=== PATIENT | female | born 1985 | race Two or more races ===

== ENCOUNTER → 2016-12-31 | Outpatient (CLI) | payer OTHER | LOC: SP 07:50 | PROVIDERS: ATTEND Physician Assistant | DX: R07.9 Chest pain, unspecified (principal) | CPT/HCPCS: 93306 ==

== ENCOUNTER → 2017-01-01 | Outpatient (CLI) | payer OTHER | LOC: RAD 14:38 | PROVIDERS: ATTEND Physician Assistant | DX: R19.00 Intra-abdominal and pelvic swelling, mass and lump, unspecified site (principal) | CPT/HCPCS: 76705 ==

== ENCOUNTER → 2017-02-04 | Outpatient (CLI) | payer OTHER ==
--- NOTE | 2017-02-04 10:03 | RADIOLOGY REPORT (SQ) ---
EXAM DESCRIPTION: CT ABD/PELVIS WITH IV ORAL COMPLETED DATE/TIME: 02/04/2017 9:04 am REASON FOR STUDY: LUQ PAIN R10.12 LEFT UPPER QUADRANT PAIN COMPARISON: None. TECHNIQUE: CT scan of the abdomen and pelvis performed with intravenous and oral contrast using elayne shaista scanning technique with dynamic intravenous contrast injection. Images reviewed with lung, soft t issue, and bone windows. Reconstructed coronal and sagittal MPR images reviewed. Delayed images for e valuation of the urinary system also acquired. All images stored on PACS. All CT scanners at this facility use dose modulation, iterative reconstruction, and/or weight based d osing when appropriate to reduce radiation dose to as low as reasonably achievable (ALARA). [facility]: Dose Right [facility]: CareDose [facility]: Dose Right [facility]: Teradose 4D [facility]: [employer] CONTRAST TYPE AND DOSE: 90 mL Isovue 370- low osmolar. RENAL FUNCTION: None required. The patient is less than 50 years old. RADIATION DOSE: 14.86mGy. LIMITATIONS: None. FINDINGS: LOWER CHEST: No significant findings. No nodules or infiltrates. LIVER: Normal size. No masses or dilated ducts. SPLEEN: Normal size. No focal lesions. PANCREAS: No masses. No significant calcifications. No adjacent inflammation or peripancreatic fluid collections. Pancreatic duct not dilated. GALLBLADDER: No identified stones by CT criteria. No inflammatory changes to suggest cholecystitis. ADRENAL GLANDS: No significant masses or asymmetry. RIGHT KIDNEY AND URETER: No solid masses. No significant calcification. No hydronephrosis or hydroure ter. LEFT KIDNEY AND URETER: No solid masses. No significant calcification. No hydronephrosis or hydrouret er. AORTA AND VESSELS: No aneurysm. No dissection. Renal arteries, SMA, celiac without stenosis. RETROPERITONEUM: No retroperitoneal adenopathy, hemorrhage or masses. BOWEL AND PERITONEAL CAVITY: No obstruction. No visualized masses. No free fluid. No inflammatory ch anges or thickening of bowel wall. APPENDIX: Normal. PELVIS: No significant masses. Normal bladder. No free fluid. ABDOMINAL WALL: No masses. No hernias. BONES: No significant or acute findings. OTHER: No other significant finding. IMPRESSION: NO SIGNIFICANT OR ACUTE FINDINGS IN THE ABDOMEN OR PELVIS. TECHNICAL DOCUMENTATION: JOB ID: [id number] Quality ID # [id number]: Final reports with documentation of one or more dose reduction techniques (e.g., Au tomated exposure control, adjustment of the mA and/or kV according to patient size, use of iterative reconstruction technique) 2010 [employer]- All Rights Reserved
== END ==
LOC: RAD 08:39
PROVIDERS: ATTEND Surgery
DX: R10.12 Left upper quadrant pain (principal)
CPT/HCPCS: 74177

== ENCOUNTER 2017-11-16 19:38 | Emergency (ER) | payer OTHER ==
--- NOTE | 2017-11-16 20:38 | RADIOLOGY REPORT (SQ) ---
EXAM DESCRIPTION: HAND RIGHT 3 VIEWS COMPLETED DATE/TIME: 11/16/2017 8:16 pm REASON FOR STUDY: Pain s/p injury COMPARISON: None. EXAM PARAMETERS: NUMBER OF VIEWS: Three views. TECHNIQUE: AP, lateral and oblique radiographic images acquired of the right hand. LIMITATIONS: None. FINDINGS: MINERALIZATION: Normal. BONES: No acute fracture or dislocation. No worrisome bone lesions. JOINTS: No effusions. SOFT TISSUES: No soft tissue swelling. No foreign body. OTHER: No other significant finding. IMPRESSION: NEGATIVE STUDY OF THE RIGHT HAND. NO RADIOGRAPHIC EVIDENCE OF ACUTE INJURY. TECHNICAL DOCUMENTATION: JOB ID: [id number] [employer]- All Rights Reserved Reading location - IP/workstation name: [email or web address]
[2017-11-16 20:46] VITALS: BP 120/74
--- NOTE | 2017-11-16 20:48 | ER Document Report ---
ED General - General Chief Complaint: Finger Injury Stated Complaint: RT FINGER PAIN Time Seen by Provider: 11/16/17 20:06 Notes: 32-year-old female here with complaints of pain to her right pinky finger after she fell and landed on the pinky. She reports that it was dislocated appearing so she pulled on it and popped it back into place. Pain is worse with movement. Pain is improved with minimizing movement. She also has some swelling. She has not taken anything for pain. She denies any numbness tingling weakness. TRAVEL OUTSIDE OF THE [place] IN LAST 30 DAYS: No - Related Data Allergies/Adverse Reactions: No Known Drug Allergies Allergy (Verified 04/25/13 12:36) Past Medical History - Social History Smoking Status: Never Smoker Family History: Reviewed & Not Pertinent Patient has suicidal ideation: No Patient has homicidal ideation: No - Past Medical History Cardiac Medical History: Denies: Hx Coronary Artery Disease - elevated triglycerides, Hx Heart Attack , Hx Hypertension Pulmonary Medical History: Denies: Hx Asthma, Hx Bronchitis, Hx COPD, Hx Pneumonia Neurological Medical History: Denies: Hx Cerebrovascular Accident, Hx Seizures Renal/ Medical History: Denies: Hx Peritoneal Dialysis Musculoskeltal Medical History: Denies Hx Arthritis Past Surgical History: Denies: Hx Hysterectomy - Immunizations Hx Diphtheria, Pertussis, Tetanus Vaccination: Yes Review of Systems - Review of Systems Notes: See history of present illness for pertinent positive review of systems; otherwise all review of systems have been reviewed and are negative Physical Exam - Vital signs Vitals: Temp Pulse Resp BP Pulse Ox 99.1 F 97 20 131/79 H 97 11/16/17 19:56 11/16/17 19:56 11/16/17 19:56 11/16/17 19:56 11/16/17 19:56 - Notes Notes: PHYSICAL EXAMINATION: GENERAL: Well-appearing and in no acute distress. HEAD: Atraumatic, normocephalic. EYES: Pupils equal round and reactive to light, extraocular movements intact, sclera anicteric, conjunctiva are normal. ENT: nares patent, oropharynx clear without exudates. Moist mucous membranes. NECK: Normal range of motion, supple without lymphadenopathy EXTREMITIES: Normal range of motion, no pitting edema. No cyanosis. Right fifth digit with some mild swelling and ecchymosis at the proximal phalanx and MTP joint however range of motion intact but there is some mild tenderness to palpation. Neurovascular intact distally NEUROLOGICAL: Cranial nerves grossly intact. Normal sensory/motor exams. PSYCH: Normal mood, normal affect. SKIN: Warm, Dry, normal turgor, no rashes or lesions noted Course - Re-evaluation Re-evalutation: 11/16/17 20:43 MEDICAL DECISION MAKING: X-ray does not show any fracture or dislocation It may have been dislocated initially however she reports she reduced it She declines any pain medication here Will prescribe her meloxicam for pain Patient understands and agrees to the plan of care - Vital Signs Vital signs: Temp Pulse Resp BP Pulse Ox 99.1 F 97 20 131/79 H 97 11/16/17 19:56 11/16/17 19:56 11/16/17 19:56 11/16/17 19:56 11/16/17 19:56 Discharge - Discharge Clinical Impression: Finger pain, right Condition: Good Disposition: HOME, SELF-CARE Additional Instructions: The x-ray was negative. Use the prescribed medication as needed for pain. Apply ice. Keep elevated. You were seen in the emergency department at [facility]. If you were given any sedating medications, be sure not to operate heavy machinery (example - driving) and be sure you are not too sedated to walk appropriately. Please followup with your primary physician in the next few days for further management/evaluation. Please return to the emergency department for worsening of symptoms or any symptom that you deem to be concerning or life-threatening. Thank you for allowing us to be part of your care.
== END 2017-11-16 20:48 | disposition home or self-care (01) ==
LOC: ER 19:38
DX: M79.644 Pain in right finger(s) (principal); W19.XXXA Unspecified fall, initial encounter
CPT/HCPCS: 99283

== ENCOUNTER → 2019-06-08 | Outpatient (CLI) | payer OTHER ==
[2019-06-08 17:37] LABS: ABSOLUTE EOSINOPHILS # (AUTO) 0.1 10^3/uL (0.0-0.6); ABSOLUTE LYMPHOCYTES (AUTO) 2.6 10^3/uL (0.5-4.7); ABSOLUTE MONOCYTES (AUTO) 0.5 10^3/uL (0.1-1.4); ABSOLUTE NEUT (AUTO) 3.5 10^3/uL (1.7-8.2); BASOPHILS % (AUTO) 0.6 % (0-2); EOSINOPHILS % (AUTO) 1.9 % (0-6); HEMATOCRIT 39.5 % (36.0-47.0); HEMOGLOBIN 13.6 g/dL (12.0-15.5); LYMPHOCYTES % (AUTO) 37.9 % (13-45); MEAN CORPUSCULAR HEMOGLOBIN 28.8 pg (27.0-33.4); MEAN CORPUSCULAR HGB CONC 34.5 g/dL (32.0-36.0); MEAN CORPUSCULAR VOLUME 83 fl (80-97); MONOCYTES % (AUTO) 8.1 % (3-13); PLATELET COUNT 287 10^3/uL (150-450); RED BLOOD COUNT 4.74 10^6/uL (3.72-5.28); RED CELL DISTRIBUTION WIDTH 12.9 % (11.5-14.0); SEGMENTED NEUTROPHILS % (AUTO) 51.5 % (42-78); TOTAL CELLS COUNTED % (AUTO) 100 %; WHITE BLOOD COUNT 6.8 10^3/uL (4.0-10.5)
== END ==
LOC: OD 16:55
PROVIDERS: ATTEND Nurse Practitioner Family
DX: N93.9 Abnormal uterine and vaginal bleeding, unspecified (principal)
CPT/HCPCS: 36415; 84703; 85025

== ENCOUNTER → 2019-08-07 | Outpatient (CLI) | payer OTHER | LOC: OD 16:18 | PROVIDERS: ATTEND Family Medicine | DX: N91.2 Amenorrhea, unspecified (principal) | CPT/HCPCS: 36415; 84702 ==

== ENCOUNTER 2019-09-01 17:33 | Emergency (ER) | payer OTHER ==
--- NOTE | 2019-09-01 18:06 | ER Document Report ---
ED Medical Screen (RME) - General Chief Complaint: Vag Bleeding, +preg <12wks Stated Complaint: VAGINAL BLEEDING Time Seen by Provider: 09/01/19 17:59 Primary Care Provider: CORINA HULL NP [Primary Care Provider] - Follow up as needed Mode of Arrival: Ambulatory Information source: Patient Notes: 34-year-old female presents to ED for complaint of vaginal bleeding and cramping that started around 1630. She is 7 weeks 3 days . She did use IUI for her . She states she has had a positive ultrasound on Wednesday before she started bleeding she was 6 weeks to 6 days she states she is a positive blood type. Patient is alert oriented respirations regular nonlabored speaking in full sentences walks with even steady gait. I have greeted and performed a rapid initial assessment of this patient. A comprehensive ED assessment and evaluation of the patient, analysis of test results and completion of medical decision making process will be conducted by an additional ED providers. TRAVEL OUTSIDE OF THE [place] IN LAST 30 DAYS: No - Related Data Allergies/Adverse Reactions: No Known Drug Allergies Allergy (Verified 04/25/13 12:36) Past Medical History - Past Medical History Cardiac Medical History: Denies: Hx Coronary Artery Disease - elevated triglycerides, Hx Heart Attack, Hx Hypertension Pulmonary Medical History: Denies: Hx Asthma, Hx Bronchitis, Hx COPD, Hx Pneumonia Neurological Medical History: Denies: Hx Cerebrovascular Accident, Hx Seizures Renal/ Medical History: Denies: Hx Peritoneal Dialysis Musculoskeltal Medical History: Denies Hx Arthritis Past Surgical History: Denies: Hx Hysterectomy - Immunizations Hx Diphtheria, Pertussis, Tetanus Vaccination: Yes Physical Exam - Vital signs Vitals: Temp Pulse Resp BP Pulse Ox 98.2 F 102 H 18 132/77 H 99 09/01/19 17:40 09/01/19 17:40 09/01/19 17:40 09/01/19 17:40 09/01/19 17:40 Course - Vital Signs Vital signs: Temp Pulse Resp BP Pulse Ox 98.2 F 102 H 18 132/77 H 99 09/01/19 17:40 09/01/19 17:40 09/01/19 17:40 09/01/19 17:40 09/01/19 17:40 Doctor's Discharge - Discharge Referrals: DELLA,CORINA ALETA, BARREL BUILDER [Primary Care Provider] - Follow up as needed
[2019-09-01 18:50] LABS: ABSOLUTE EOSINOPHILS # (AUTO) 0.2 10^3/uL (0.0-0.6); ABSOLUTE MONOCYTES (AUTO) 0.8 10^3/uL (0.1-1.4); ABSOLUTE NEUT (AUTO) 8.5 10^3/uL (1.7-8.2); BASOPHILS % (AUTO) 0.4 % (0-2); EOSINOPHILS % (AUTO) 1.7 % (0-6); HEMATOCRIT 40.1 % (36.0-47.0); LYMPHOCYTES % (AUTO) 17.4 % (13-45); MEAN CORPUSCULAR HEMOGLOBIN 29.6 pg (27.0-33.4); MEAN CORPUSCULAR HGB CONC 34.8 g/dL (32.0-36.0); MEAN CORPUSCULAR VOLUME 85 fl (80-97); MONOCYTES % (AUTO) 6.5 % (3-13); PLATELET COUNT 269 10^3/uL (150-450); RED BLOOD COUNT 4.71 10^6/uL (3.72-5.28); RED CELL DISTRIBUTION WIDTH 12.9 % (11.5-14.0); TOTAL CELLS COUNTED % (AUTO) 100 %; WHITE BLOOD COUNT 11.5 10^3/uL (4.0-10.5)
[2019-09-01 18:54] LABS: APPEARANCE,URINE CLEAR; BILIRUBIN,URINE NEGATIVE (NEGATIVE); COLOR,URINE STRAW; GLUCOSE, URINE NEGATIVE (NEGATIVE); KETONES,URINE NEGATIVE (NEGATIVE); PROTEIN,URINE NEGATIVE (NEGATIVE); URINE SPECIFIC GRAVITY 1.004; UROBILINOGEN,URINE NEGATIVE mg/dL (<2.0)
[2019-09-01 19:15] LABS: ALBUMIN 4.4 g/dL (3.5-5.0); ALKALINE PHOSPHATASE 47 U/L (38-126); ANION GAP 12 (5-19); ASPARTATE AMINO TRANSFERASE 18 U/L (14-36); BILIRUBIN,DIRECT 0.1 mg/dL (0.0-0.4); BILIRUBIN,TOTAL 0.5 mg/dL (0.2-1.3); BLOOD UREA NITROGEN 9 mg/dL (7-20); CALCIUM 10.1 mg/dL (8.4-10.2); CARBON DIOXIDE 26 mmol/L (22-30); CHLORIDE 102 mmol/L (98-107); GLUCOSE 112 mg/dL (75-110); POTASSIUM 4.4 mmol/L (3.6-5.0)
--- NOTE | 2019-09-01 19:29 | RADIOLOGY REPORT (SQ) ---
EXAM DESCRIPTION: U/S OB TRANSVAGINAL W/O DOP COMPLETED DATE/TIME: 09/01/2019 7:10 pm REASON FOR STUDY: vaginal bleeding pelvic pain 7 weeks predg IUI COMPARISON: None. TECHNIQUE: Transvaginal static and realtime grayscale images acquired of the pelvis. Additional vitaliy cted spectral and color Doppler images recorded. All images stored on PACs. bHCG: Pending. CLINICAL DATES: 7 week 5 day. LIMITATIONS: None. FINDINGS: FETUS: Single Living intrauterine . ULTRASOUND EGA: 7 week 3 day. ULTRASOUND KRYSTIAN: 04/16/2020. EFW: Not applicable less than 20 weeks. CRL: 1.2 cm. FHR: 169 beats per minute. SURVEY: No visualized anomalies. AMNIOTIC FLUID: Adequate amount. PLACENTA: Not yet developed due to early gestation. SUBCHORIONIC BLEED: No. SIZE OF BLEED: Not applicable. UTERUS: No masses. No anomalies. CERVICAL LENGTH: 3.1 cm. Closed. RIGHT ADNEXA: Normal ovary with normal vascular flow. No adnexal free fluid. 8 mm cyst. LEFT ADNEXA: Ovary not identified due to poor acoustical window. No adnexal free fluid. No adnexal masses. FREE FLUID: None. OTHER: No other significant finding. IMPRESSION: LIVING INTRAUTERINE . EGA 7 WEEK 3 DAY. Trimester of : First trimester - 0 to 13 weeks. TECHNICAL DOCUMENTATION: JOB ID: [id number] [employer]- All Rights Reserved rev Reading location - IP/workstation name: [email or web address]
[2019-09-01 23:00] VITALS: BP 131/71
--- NOTE | 2019-09-05 09:52 | ER Document Report ---
Entered by DONG LOPEZ SCRIBE 09/01/19 [id number] Acting as scribe for:KATHRYN HENDERSON IV, MD ED GI/ - General Chief Complaint: Vaginal Bleeding Stated Complaint: VAGINAL BLEEDING Time Seen by Provider: 09/01/19 17:59 Primary Care Provider: CORINA HULL NP [NURSE PRACTITIONER] - Follow up as needed Mode of Arrival: Ambulatory Information source: Patient Notes: This 34-year-old female patient presents to the emergency department today with complaints of vaginal bleeding. Patient is approximately 7 weeks with her last normal menstrual period being on 07/09/19. Patient states that she is followed by a fertility specialist and this was induced using intrauterine insemination. Patient states that she notice spotting after intercourse about a week ago and she called her fertility specialist who told her this was normal, but to refrain from intercourse which she has done. Patient states that bleeding has since subsided but today she "passed a clot" which scared her. TRAVEL OUTSIDE OF THE [place] IN LAST 30 DAYS: No - Related Data Allergies/Adverse Reactions: No Known Drug Allergies Allergy (Verified 04/25/13 12:36) Home Medications: PCN Past Medical History - General Information source: Patient Last Menstrual Period: 07/09/19 - Social History Smoking Status: Never Smoker Cigarette use (# per day): No Chew tobacco use (# tins/day): No Frequency of alcohol use: None Drug Abuse: None Lives with: Family Family History: Reviewed & Not Pertinent Patient has suicidal ideation: No Patient has homicidal ideation: No - Immunizations Hx Diphtheria, Pertussis, Tetanus Vaccination: Yes Review of Systems - Review of Systems Constitutional: No symptoms reported EENT: No symptoms reported Cardiovascular: No symptoms reported Respiratory: No symptoms reported Gastrointestinal: denies: Abdominal pain Genitourinary: denies: Burning Female Genitourinary: See HPI, , Vaginal bleeding. denies: Vaginal discharge Musculoskeletal: No symptoms reported Skin: No symptoms reported Hematologic/Lymphatic: No symptoms reported Neurological/Psychological: No symptoms reported -: Yes All other systems reviewed and negative Physical Exam - Vital signs Vitals: Temp Pulse Resp BP Pulse Ox 98.2 F 102 H 18 132/77 H 99 09/01/19 17:40 09/01/19 17:40 09/01/19 17:40 09/01/19 17:40 09/01/19 17:40 - Notes Notes: Physical Exam: General: Alert, appears well. HEENT: Normocephalic. Atraumatic. PERRL. Extraocular movements intact. Oropharynx clear. No posterior oropharynx erythema or exudate. Neck: Supple. Non-tender. Respiratory: No respiratory distress. Clear and equal breath sounds bilaterally. Cardiovascular: Regular rate and rhythm. Abdominal: Normal Inspection. Non-tender. No distension. Normal Bowel Sounds. Back: No gross abnormalities. Extremities: Moves all four extremities. Upper extremities: Normal inspection. Normal ROM. Lower extremities: Normal inspection. No edema. Normal ROM. Neurological: Normal cognition. AAOx4. Normal speech. Psychological: Normal affect. Normal Mood. Skin: Warm. Dry. Normal color. Course - Vital Signs Vital signs: Temp Pulse Resp BP Pulse Ox 98.6 F 91 18 131/71 H 95 09/01/19 22:57 09/01/19 22:57 09/01/19 22:57 09/01/19 22:57 09/01/19 22:57 - Laboratory Result Diagrams: 09/01/19 18:23 09/01/19 18:23 Laboratory results interpreted by me: 09/01/19 09/01/19 09/01/19 18:23 18:23 18:26 WBC 11.5 H Absolute Neuts (auto) 8.5 H Glucose 112 H Beta HCG, Quant 04386.00 H Urine Blood MODERATE H Discharge - Discharge Clinical Impression: Vaginal bleeding during , Intrauterine Condition: Good Disposition: HOME, SELF-CARE Additional Instructions: Return to the Emergency Department without delay if any worse. You are . care is best started as early in as possible. If you're unsure about continuing this , you should discuss this with your physician or with lightning rod installer at [facility]. You should take only medications approved by your physician. Acetaminophen can safely be taken for minor pains. As a rule, medication for chronic conditions such as asthma or seizures can safely be continued. You should discuss with the physician every medicine you take. Any regular exercise program can be continued. Talk to your physician, however, before engaging in competitive or demanding sports. Alcohol, smoking, and "street drugs" are dangerous to your baby. Cocaine is especially dangerous. Don't use any illicit drugs! HOME CARE INSTRUCTIONS & INFORMATION: Thank you for choosing us for your medical needs. We hope you're satisfied with the care you received. After you leave, you must properly care for your problem and, at the same time, observe it s progress. Any condition can change. Some illnesses can change rapidly over hours or days. If your condition worsens, return to the Emergency Department or see your physician promptly. ABOUT YOUR X-RAYS AND EKG'S: If you had an EKG or X-rays taken, they have been read by the Emergency Physician. The X-rays and EKG's will also be read by a Radiologist or Practical Nurse within 24 hours. If discrepancies are noted, you will be notified by telephone. Please be certain the ED has a correct telephone number & address where you can be reached. Also, realize that some fractures or abnormalities do not show up on initial X-rays. If your symptoms continue, see your physician. ABOUT YOUR LABORATORY TEST: If you had laboratory tests, the results have been reviewed by the Emergency Physician. Some test results (for example cultures) may not be available for several days. You will be contacted if any test result shows you need additional treatment. Please be certain the ED has a correct telephone number and address where you can be reached. ABOUT YOUR MEDICATIONS: You will receive instructions on how to take your medicine on the prescription label you receive. Additional information may be provided by the Pharmacy. If you have questions afterwards, call the ED for clarification or further instructions. Some prescribed medications may cause drowsiness. Do not perform tasks such as driving a car or operating machinery without consulting your Pharmacist. If you feel you need a refill of pain medication, your condition will need re-evaluation. Please do not call for a refill of any medication. ABOUT YOUR SIGNATURE: Signature of this document acknowledges to followin. Understanding that you received emergency treatment and that you may be released before al medical problems are known or treated. Please be certain the ED has a correct phone number & address where you can be reached. 2. Acknowledgement that you will arrange for follow-up care as recommended. 3. Authorization for the Emergency Physician to provide information to your follow-up Physician in order to maximize your care. AT ANY TIME, IF YOUR SYMPTOMS CHANGE SIGNIFICANTLY OR WORSEN OR YOU DEVELOP NEW SYMPTOMS, RETURN TO THE EMERGENCY DEPARTMENT IMMEDIATELY FOR RE-EVALUATION. OUR GOAL IS TO PROVIDE EXCELLENT MEDICAL CARE! WE HOPE THAT WE HAVE MET YOUR EXPECTATIONS DURING YOUR EMERGENCY DEPARTMENT VISIT AND THAT YOU FEEL YOU HAVE RECEIVED EXCELLENT CARE! Referrals: CORINA HULL, EMBEDDED FIRMWARE ENGINEER [NURSE PRACTITIONER] - Follow up as needed I personally performed the services described in the documentation, reviewed and edited the documentation which was dictated to the scribe in my presence, and it accurately records my words and actions.
== END 2019-09-01 22:57 | disposition home or self-care (01) ==
LOC: ER 17:33
DX: O20.9 Hemorrhage in early pregnancy, unspecified (principal); O09.811 Supervision of pregnancy resulting from assisted reproductive technology, first trimester; Z3A.01 Less than 8 weeks gestation of pregnancy; Z79.2 Long term (current) use of antibiotics
CPT/HCPCS: 36415; 76817; 80053; 81001; 84702; 85025; 99284

== ENCOUNTER 2020-02-26 12:41 | Outpatient (CLI) | payer OTHER ==
[2020-02-26 13:24] LABS: APPEARANCE,URINE CLEAR; BILIRUBIN,URINE NEGATIVE (NEGATIVE); COLOR,URINE STRAW; GLUCOSE, URINE NEGATIVE (NEGATIVE); KETONES,URINE NEGATIVE (NEGATIVE); LEUKOCYTE ESTERASE,URINE NEGATIVE (NEGATIVE); NITRITE,URINE NEGATIVE (NEGATIVE); PROTEIN,URINE NEGATIVE (NEGATIVE); URINE SPECIFIC GRAVITY 1.004; UROBILINOGEN,URINE NEGATIVE mg/dL (<2.0)
[2020-02-26 13:36] LABS: URINE AMPHETAMINES SCREEN NEGATIVE; URINE BARBITURATES SCREEN NEGATIVE; URINE BENZODIAZEPINES SCREEN NEGATIVE; URINE COCAINE SCREEN NEGATIVE; URINE MARIJUANA (THC) SCREEN NEGATIVE; URINE METHADONE SCREEN NEGATIVE; URINE PHENCYCLIDINE SCREEN NEGATIVE
[2020-02-26 13:42] LABS: UR PRO/CREAT RATIO RESULT 0.5 mg/mg (0.0-0.2); URINE CREATININE 32.4 mg/dL (16-327); URINE PROTEIN 16.7 mg/dL (<12)
--- NOTE | 2020-02-26 13:43 | Non Stress Test Report ---
Non Stress Test Datetime Report Generated by CPN: 02/26/2020 13:43 DEMOGRAPHIC Test Number: 1 EGA NST: 32.6 MONITORING Monitor Explained: Monitor Explained; Test Explained; Patient Verbalized Understanding Time on Monitor: 02/26/2020 12:53 Time off Monitor: 02/26/2020 13:38 NST Duration: 45 NST INTERVENTIONS NST Interventions: PO Hydration Physician Notified NST: K. Davis CNM on unit, reviewed fht BABY A: [id number] BABY A Movement : Present Contraction Frequency : none FHR Baseline : 150 Accelerations : 15X15 Decelerations : None Variability : Moderate 6-25bpm NST Review: Meets Criteria for Reactive NST NST Review and Verified By : TMartin,RN NST Results: Reactive NST REPORT Report Trigger: Send Report
[2020-02-26 14:02] LABS: HEMOGLOBIN 12.4 g/dL (12.0-15.5); MEAN CORPUSCULAR HEMOGLOBIN 28.2 pg (27.0-33.4); MEAN CORPUSCULAR HGB CONC 34.5 g/dL (32.0-36.0); MEAN CORPUSCULAR VOLUME 82 fl (80-97); PLATELET COUNT 240 10^3/uL (150-450); RED BLOOD COUNT 4.41 10^6/uL (3.72-5.28); RED CELL DISTRIBUTION WIDTH 14.3 % (11.5-14.0)
[2020-02-26 14:23] LABS: ALBUMIN 3.2 g/dL (3.5-5.0); ALKALINE PHOSPHATASE 73 U/L (38-126); ANION GAP 5 (5-19); ASPARTATE AMINO TRANSFERASE 18 U/L (14-36); BILIRUBIN,TOTAL 0.3 mg/dL (0.2-1.3); BLOOD UREA NITROGEN 5 mg/dL (7-20); CALCIUM 9.5 mg/dL (8.4-10.2); CARBON DIOXIDE 24 mmol/L (22-30); CHLORIDE 107 mmol/L (98-107); GLUCOSE 74 mg/dL (75-110); POTASSIUM 4.2 mmol/L (3.6-5.0)
== END 2020-02-26 15:01 | disposition home or self-care (01) ==
LOC: LC 12:41
PROVIDERS: ATTEND Obstetrics & Gynecology
DX: O14.93 Unspecified pre-eclampsia, third trimester (principal); Z3A.32 32 weeks gestation of pregnancy
CPT/HCPCS: 36415; 80053; 80307; 81001; 82570; 83615; 84156; 84550; 85027

== ENCOUNTER 2020-03-04 14:44 | Outpatient (CLI) | payer OTHER ==
[2020-03-04 15:37] LABS: APPEARANCE,URINE CLOUDY; BILIRUBIN,URINE NEGATIVE (NEGATIVE); COLOR,URINE YELLOW; GLUCOSE, URINE NEGATIVE (NEGATIVE); KETONES,URINE NEGATIVE (NEGATIVE); LEUKOCYTE ESTERASE,URINE TRACE (NEGATIVE); NITRITE,URINE NEGATIVE (NEGATIVE); PROTEIN,URINE NEGATIVE (NEGATIVE); UROBILINOGEN,URINE NEGATIVE mg/dL (<2.0)
[2020-03-04 15:55] LABS: URINE AMPHETAMINES SCREEN NEGATIVE; URINE BARBITURATES SCREEN NEGATIVE; URINE BENZODIAZEPINES SCREEN NEGATIVE; URINE COCAINE SCREEN NEGATIVE; URINE MARIJUANA (THC) SCREEN NEGATIVE; URINE METHADONE SCREEN NEGATIVE; URINE PHENCYCLIDINE SCREEN NEGATIVE
[2020-03-04 15:57] LABS: ABSOLUTE EOSINOPHILS # (AUTO) 0.1 10^3/uL (0.0-0.6); ABSOLUTE LYMPHOCYTES (AUTO) 1.7 10^3/uL (0.5-4.7); ABSOLUTE MONOCYTES (AUTO) 0.5 10^3/uL (0.1-1.4); ABSOLUTE NEUT (AUTO) 5.5 10^3/uL (1.7-8.2); BASOPHILS % (AUTO) 0.4 % (0-2); EOSINOPHILS % (AUTO) 0.8 % (0-6); LYMPHOCYTES % (AUTO) 21.8 % (13-45); MEAN CORPUSCULAR HEMOGLOBIN 27.5 pg (27.0-33.4); MEAN CORPUSCULAR HGB CONC 33.5 g/dL (32.0-36.0); MEAN CORPUSCULAR VOLUME 82 fl (80-97); MONOCYTES % (AUTO) 6.1 % (3-13); PLATELET COUNT 239 10^3/uL (150-450); RED BLOOD COUNT 4.38 10^6/uL (3.72-5.28); RED CELL DISTRIBUTION WIDTH 14.2 % (11.5-14.0); SEGMENTED NEUTROPHILS % (AUTO) 70.9 % (42-78); TOTAL CELLS COUNTED % (AUTO) 100 %; WHITE BLOOD COUNT 7.7 10^3/uL (4.0-10.5)
[2020-03-04 16:12] LABS: ALKALINE PHOSPHATASE 75 U/L (38-126); ASPARTATE AMINO TRANSFERASE 16 U/L (14-36); BILIRUBIN,TOTAL 0.3 mg/dL (0.2-1.3); BLOOD UREA NITROGEN 6 mg/dL (7-20); CALCIUM 9.1 mg/dL (8.4-10.2); GLUCOSE 119 mg/dL (75-110); POTASSIUM 4.3 mmol/L (3.6-5.0); TOTAL PROTEIN 5.9 g/dL (6.3-8.2); URIC ACID 4.5 mg/dL (2.5-7.0)
[2020-03-04 16:17] LABS: CARBON DIOXIDE 22 mmol/L (22-30); CHLORIDE 109 mmol/L (98-107)
[2020-03-04 16:23] LABS: ANION GAP 4 (5-19)
--- NOTE | 2020-03-04 16:50 | Non Stress Test Report ---
Non Stress Test Datetime Report Generated by CPN: 03/04/2020 16:50 DEMOGRAPHIC EGA NST: 33.6 INDICATION Indication for Study (NST) Other: 33 .6 HTN evaluation VITAL SIGNS Temperature - NST: 98.4 Pulse - NST: 95 RESP - NST: 18 NBPSYS NST: 133 NBPDIA NST: 90 MONITORING Monitor Explained: Monitor Explained; Test Explained; Patient Verbalized Understanding Time on Monitor: 03/04/2020 15:01 Time off Monitor: 03/04/2020 16:10 NST Duration: 69 NST INTERVENTIONS NST Interventions: PO Hydration Physician Notified NST: Cortés BABY A: [id number] BABY A Movement : Present Contraction Frequency : None FHR Baseline : 140 Accelerations : 15X15 Decelerations : None Variability : Moderate 6-25bpm NST Review: Meets Criteria for Reactive NST NST Review and Verified By : NAHID Hoyos NST Results: Reactive NST REPORT Report Trigger: Send Report
[2020-03-04 18:04] LABS: UR PRO/CREAT RATIO RESULT 0.3 mg/mg (0.0-0.2); URINE CREATININE 77.3 mg/dL (16-327); URINE PROTEIN 24.9 mg/dL (<12)
== END 2020-03-04 16:46 | disposition home or self-care (01) ==
LOC: LC 14:44
PROVIDERS: ATTEND Obstetrics & Gynecology
DX: O16.3 Unspecified maternal hypertension, third trimester (principal); Z3A.31 31 weeks gestation of pregnancy
CPT/HCPCS: 36415; 59025; 80053; 80307; 81001; 82570; 83615; 84156; 84550; 85025

== ENCOUNTER 2020-03-14 11:47 | Outpatient (CLI) | payer OTHER ==
[2020-03-14 12:47] LABS: APPEARANCE,URINE CLEAR; BILIRUBIN,URINE NEGATIVE (NEGATIVE); COLOR,URINE STRAW; GLUCOSE, URINE NEGATIVE (NEGATIVE); KETONES,URINE NEGATIVE (NEGATIVE); LEUKOCYTE ESTERASE,URINE NEGATIVE (NEGATIVE); NITRITE,URINE NEGATIVE (NEGATIVE); PROTEIN,URINE NEGATIVE (NEGATIVE); URINE SPECIFIC GRAVITY 1.004; UROBILINOGEN,URINE NEGATIVE mg/dL (<2.0)
[2020-03-14 13:06] LABS: UR PRO/CREAT RATIO RESULT 0.6 mg/mg (0.0-0.2); URINE CREATININE 44.5 mg/dL (16-327); URINE PROTEIN 26.8 mg/dL (<12)
[2020-03-14 13:07] LABS: URINE AMPHETAMINES SCREEN NEGATIVE; URINE BARBITURATES SCREEN NEGATIVE; URINE BENZODIAZEPINES SCREEN NEGATIVE; URINE COCAINE SCREEN NEGATIVE; URINE MARIJUANA (THC) SCREEN NEGATIVE; URINE METHADONE SCREEN NEGATIVE; URINE PHENCYCLIDINE SCREEN NEGATIVE
[2020-03-14 13:29] LABS: HEMATOCRIT 40.2 % (36.0-47.0); HEMOGLOBIN 13.5 g/dL (12.0-15.5); MEAN CORPUSCULAR HEMOGLOBIN 27.4 pg (27.0-33.4); MEAN CORPUSCULAR HGB CONC 33.5 g/dL (32.0-36.0); MEAN CORPUSCULAR VOLUME 82 fl (80-97); PLATELET COUNT 231 10^3/uL (150-450); RED BLOOD COUNT 4.92 10^6/uL (3.72-5.28); RED CELL DISTRIBUTION WIDTH 14.8 % (11.5-14.0); WHITE BLOOD COUNT 6.9 10^3/uL (4.0-10.5)
[2020-03-14 13:51] LABS: ALBUMIN 3.3 g/dL (3.5-5.0); ALKALINE PHOSPHATASE 83 U/L (38-126); ANION GAP 6 (5-19); ASPARTATE AMINO TRANSFERASE 19 U/L (14-36); BILIRUBIN,TOTAL 0.5 mg/dL (0.2-1.3); BLOOD UREA NITROGEN 9 mg/dL (7-20); CALCIUM 9.5 mg/dL (8.4-10.2); CARBON DIOXIDE 24 mmol/L (22-30); CHLORIDE 104 mmol/L (98-107); GLUCOSE 95 mg/dL (75-110); POTASSIUM 4.1 mmol/L (3.6-5.0); TOTAL PROTEIN 6.3 g/dL (6.3-8.2); URIC ACID 5.7 mg/dL (2.5-7.0)
--- NOTE | 2020-03-14 14:31 | Non Stress Test Report ---
Non Stress Test Datetime Report Generated by CPN: 03/14/2020 14:30 DEMOGRAPHIC Test Number: 3 EGA NST: 35.2 INDICATION Indication for Study (NST) Other: pre e work up VITAL SIGNS Temperature - NST: 98.6 Pulse - NST: 106 RESP - NST: 16 NBPSYS NST: 119 NBPDIA NST: 63 URINE RESULTS Urine Ketones - NST: Positive MONITORING Monitor Explained: Monitor Explained; Test Explained; Patient Verbalized Understanding Time on Monitor: 03/14/2020 12:03 Time off Monitor: 03/14/2020 14:17 NST Duration: 134 NST INTERVENTIONS NST Interventions: PO Hydration; Reposition Patient Physician Notified NST: N Calvo CNM BABY A: [id number] BABY A Movement : Present Contraction Frequency : none FHR Baseline : 145 Accelerations : 15X15 Decelerations : None Variability : Moderate 6-25bpm NST Review: Meets Criteria for Reactive NST NST Review and Verified By : B Baidy RN NST Results: Reactive NST REPORT Report Trigger: Send Report
[2020-03-15 17:40] LABS: URINE PROTEIN 17.1 mg/dL (<12)
[2020-03-15 17:47] LABS: 24 HOUR URINE PROTEIN RESULT 393 mg/day (42-225)
== END 2020-03-14 14:25 | disposition home or self-care (01) ==
LOC: LC 11:47
PROVIDERS: ATTEND Obstetrics & Gynecology Gynecology
DX: O16.3 Unspecified maternal hypertension, third trimester (principal); O09.523 Supervision of elderly multigravida, third trimester; Z3A.35 35 weeks gestation of pregnancy
CPT/HCPCS: 36415; 59025; 80053; 80307; 81005; 82570; 84156; 84550; 85027

== ENCOUNTER 2020-03-22 22:57 | Outpatient (CLI) | payer OTHER ==
[2020-03-22 23:31] LABS: APPEARANCE,URINE CLEAR; BILIRUBIN,URINE NEGATIVE (NEGATIVE); COLOR,URINE YELLOW; GLUCOSE, URINE NEGATIVE (NEGATIVE); KETONES,URINE NEGATIVE (NEGATIVE); LEUKOCYTE ESTERASE,URINE NEGATIVE (NEGATIVE); NITRITE,URINE NEGATIVE (NEGATIVE); PROTEIN,URINE 100 mg/dL (NEGATIVE); URINE SPECIFIC GRAVITY 1.015; UROBILINOGEN,URINE NEGATIVE mg/dL (<2.0)
[2020-03-22 23:43] LABS: URINE AMPHETAMINES SCREEN NEGATIVE; URINE BARBITURATES SCREEN NEGATIVE; URINE BENZODIAZEPINES SCREEN NEGATIVE; URINE COCAINE SCREEN NEGATIVE; URINE MARIJUANA (THC) SCREEN NEGATIVE; URINE METHADONE SCREEN NEGATIVE; URINE PHENCYCLIDINE SCREEN NEGATIVE
== END 2020-03-23 00:56 | disposition home or self-care (01) ==
LOC: LC 22:57
PROVIDERS: ATTEND Obstetrics & Gynecology Gynecology
DX: O47.03 False labor before 37 completed weeks of gestation, third trimester (principal); O16.3 Unspecified maternal hypertension, third trimester; O09.513 Supervision of elderly primigravida, third trimester; Z3A.38 38 weeks gestation of pregnancy
CPT/HCPCS: 80307; 81001

== ENCOUNTER 2020-03-25 19:12 | Outpatient (CLI) | payer OTHER ==
--- NOTE | 2020-03-25 19:20 | Non Stress Test Report ---
Non Stress Test Datetime Report Generated by CPN: 03/25/2020 19:19 DEMOGRAPHIC EGA NST: 36.3 INDICATION Indication for Study (NST) Other: >32 weeks URINE RESULTS Urine Protein, NST: Positive Urine Ketones - NST: Negative Urine Glucose - NST: Negative Urine Blood - NST: Negative MONITORING Monitor Explained: Monitor Explained; Test Explained; Patient Verbalized Understanding Time on Monitor: 03/22/2020 23:45 Time off Monitor: 03/23/2020 00:42 NST Duration: 57 NST INTERVENTIONS NST Interventions: PO Hydration; Other NST Interventions Other: Popsicle Physician Notified NST: Dr. Leyva BABY A: [id number] BABY A Movement : Present Contraction Frequency : Rare FHR Baseline : 135 Accelerations : 15X15 Decelerations : None Variability : Moderate 6-25bpm NST Review: Meets Criteria for Reactive NST NST Review and Verified By : NAHID VALVERDET Results: Reactive NST REPORT Report Trigger: Send Report
[2020-03-25] MEDS ORDERED: BETAMET ACET/BETAMET NA INJ 6 MG/1 ML ONE ×2 (19:35→19:49)
[2020-03-25] MEDS ORDERED: BETAMET ACET/BETAMET NA INJ 6 MG/1 ML IM PRN (19:45)
[2020-03-25 19:55] LABS: ABSOLUTE BASOPHILS # (AUTO) 0.1 10^3/uL (0.0-0.2); ABSOLUTE EOSINOPHILS # (AUTO) 0.1 10^3/uL (0.0-0.6); ABSOLUTE MONOCYTES (AUTO) 0.5 10^3/uL (0.1-1.4); ABSOLUTE NEUT (AUTO) 5.2 10^3/uL (1.7-8.2); BASOPHILS % (AUTO) 1.1 % (0-2); EOSINOPHILS % (AUTO) 0.9 % (0-6); HEMATOCRIT 36.7 % (36.0-47.0); HEMOGLOBIN 12.5 g/dL (12.0-15.5); LYMPHOCYTES % (AUTO) 25.3 % (13-45); MEAN CORPUSCULAR HEMOGLOBIN 27.5 pg (27.0-33.4); MEAN CORPUSCULAR VOLUME 81 fl (80-97); MONOCYTES % (AUTO) 6.2 % (3-13); PLATELET COUNT 223 10^3/uL (150-450); RED BLOOD COUNT 4.54 10^6/uL (3.72-5.28); RED CELL DISTRIBUTION WIDTH 15.1 % (11.5-14.0); SEGMENTED NEUTROPHILS % (AUTO) 66.5 % (42-78); TOTAL CELLS COUNTED % (AUTO) 100 %; WHITE BLOOD COUNT 7.9 10^3/uL (4.0-10.5)
[2020-03-25 20:01] LABS: APPEARANCE,URINE SLIGHTLY-CLOUDY; BILIRUBIN,URINE NEGATIVE (NEGATIVE); COLOR,URINE YELLOW; GLUCOSE, URINE NEGATIVE (NEGATIVE); KETONES,URINE NEGATIVE (NEGATIVE); LEUKOCYTE ESTERASE,URINE NEGATIVE (NEGATIVE); NITRITE,URINE NEGATIVE (NEGATIVE); PROTEIN,URINE 100 mg/dL (NEGATIVE); URINE SPECIFIC GRAVITY 1.016; UROBILINOGEN,URINE NEGATIVE mg/dL (<2.0)
[2020-03-25 20:13] LABS: ALKALINE PHOSPHATASE 95 U/L (38-126); ANION GAP 5 (5-19); ASPARTATE AMINO TRANSFERASE 18 U/L (14-36); BILIRUBIN,TOTAL 0.3 mg/dL (0.2-1.3); BLOOD UREA NITROGEN 7 mg/dL (7-20); CALCIUM 8.5 mg/dL (8.4-10.2); CARBON DIOXIDE 23 mmol/L (22-30); CHLORIDE 106 mmol/L (98-107); GLUCOSE 115 mg/dL (75-110); POTASSIUM 3.7 mmol/L (3.6-5.0); TOTAL PROTEIN 5.8 g/dL (6.3-8.2); URIC ACID 5.3 mg/dL (2.5-7.0)
[2020-03-25 20:27] LABS: UR PRO/CREAT RATIO RESULT 0.2 mg/mg (0.0-0.2); URINE CREATININE 133.2 mg/dL (16-327); URINE PROTEIN 26.9 mg/dL (<12)
[2020-03-25 20:47] LABS: URINE AMPHETAMINES SCREEN NEGATIVE; URINE BARBITURATES SCREEN NEGATIVE; URINE BENZODIAZEPINES SCREEN NEGATIVE; URINE COCAINE SCREEN NEGATIVE; URINE MARIJUANA (THC) SCREEN NEGATIVE; URINE METHADONE SCREEN NEGATIVE; URINE PHENCYCLIDINE SCREEN NEGATIVE
--- NOTE | 2020-03-25 20:51 | Non Stress Test Report ---
Non Stress Test Datetime Report Generated by CPN: 03/25/2020 20:51 DEMOGRAPHIC EGA NST: 36.6 INDICATION Indication for Study (NST) Other: NST, pre-E workup MONITORING Monitor Explained: Monitor Explained; Test Explained; Patient Verbalized Understanding Time on Monitor: 03/25/2020 19:27 Time off Monitor: 03/25/2020 20:15 NST Duration: 48 NST INTERVENTIONS NST Interventions: PO Hydration Physician Notified NST: Dr. Germain BABY A Movement : Present Movement : Present Contraction Frequency : none FHR Baseline : 130 Accelerations : 15X15 Decelerations : None Variability : Moderate 6-25bpm NST Review: Meets Criteria for Reactive NST NST Review: Meets Criteria for Reactive NST NST Review and Verified By : NAHID Suero Results: Reactive NST Results: Reactive NST REPORT Report Trigger: Send Report
== END 2020-03-25 20:50 | disposition home or self-care (01) ==
LOC: LC 19:12
PROVIDERS: ATTEND Obstetrics & Gynecology
DX: O14.93 Unspecified pre-eclampsia, third trimester (principal); O09.513 Supervision of elderly primigravida, third trimester; Z3A.36 36 weeks gestation of pregnancy
CPT/HCPCS: 59025; 36415; 83615; 84156; 84550; 82570; 85025; 80053; 81001; 80307; J0702

== ENCOUNTER 2020-03-28 19:31 | Inpatient (IN) | payer OTHER ==
[2020-03-28] MEDS ORDERED: RINGERS SOLUTION,LACTATED 1,000 ML IV ONE (19:46)
[2020-03-28] MEDS ORDERED: RINGERS SOLUTION,LACTATED 1,000 ML IV PRN (19:46)
[2020-03-28] MEDS ORDERED: ACETAMINOPHEN 325 MG TABLET PO PRN (19:50)
[2020-03-28] MEDS ORDERED: DINOPROSTONE 10 MG VAGINAL INSERT.SR PV ONE (19:50)
[2020-03-28] MEDS ORDERED: MAG HYDROX/AL HYDROX/SIMETH SUSP 30 ML UDCUP PO PRN (19:50)
[2020-03-28] MEDS ORDERED: ZOLPIDEM TARTRATE 5 MG TABLET PO PRN (19:50)
[2020-03-28 20:26] LABS: ABSOLUTE BASOPHILS # (AUTO) 0.1 10^3/uL (0.0-0.2); ABSOLUTE EOSINOPHILS # (AUTO) 0.1 10^3/uL (0.0-0.6); ABSOLUTE MONOCYTES (AUTO) 0.8 10^3/uL (0.1-1.4); ABSOLUTE NEUT (AUTO) 5.3 10^3/uL (1.7-8.2); BASOPHILS % (AUTO) 0.8 % (0-2); EOSINOPHILS % (AUTO) 0.6 % (0-6); HEMATOCRIT 36.4 % (36.0-47.0); HEMOGLOBIN 12.3 g/dL (12.0-15.5); LYMPHOCYTES % (AUTO) 24.9 % (13-45); MEAN CORPUSCULAR HEMOGLOBIN 27.4 pg (27.0-33.4); MEAN CORPUSCULAR VOLUME 81 fl (80-97); MONOCYTES % (AUTO) 9.8 % (3-13); PLATELET COUNT 225 10^3/uL (150-450); RED BLOOD COUNT 4.51 10^6/uL (3.72-5.28); RED CELL DISTRIBUTION WIDTH 15.3 % (11.5-14.0); SEGMENTED NEUTROPHILS % (AUTO) 63.9 % (42-78); TOTAL CELLS COUNTED % (AUTO) 100 %; WHITE BLOOD COUNT 8.2 10^3/uL (4.0-10.5)
[2020-03-28 20:49] LABS: ALKALINE PHOSPHATASE 94 U/L (38-126); ANION GAP 6 (5-19); ASPARTATE AMINO TRANSFERASE 18 U/L (14-36); BILIRUBIN,TOTAL 0.2 mg/dL (0.2-1.3); BLOOD UREA NITROGEN 11 mg/dL (7-20); CALCIUM 8.9 mg/dL (8.4-10.2); CARBON DIOXIDE 19 mmol/L (22-30); CHLORIDE 108 mmol/L (98-107); GLUCOSE 91 mg/dL (75-110); POTASSIUM 4.2 mmol/L (3.6-5.0); TOTAL PROTEIN 5.8 g/dL (6.3-8.2); URIC ACID 5.7 mg/dL (2.5-7.0)
--- NOTE | 2020-03-28 21:02 | RADIOLOGY REPORT (SQ) ---
EXAM DESCRIPTION: US LIMITED COMPLETED DATE/TME: 03/28/2020 00:00 CLINICAL HISTORY: 34 years, Female, Confirm vertex position. COMPARISON: None. TECHNIQUE: LIMITATIONS: None. FINDINGS: A limited examination was performed to confirm position. There is a live fetus in vertex presentation. cardiac activity was measured at 150 bpm. The placenta is posterior in location with no evidence of abruption or previa. There is a normal amount of amniotic fluid. The cervix measures 3.1 cm in length and is closed. IMPRESSION: Live IUP in vertex presentation. copyright 2010 [employer]- All Rights Reserved
[2020-03-28] MEDS ORDERED: LIDOCAINE 1% INJ-PF (10 MG/ML) 30 ML SDV ONE (21:22)
[2020-03-28] MEDS ORDERED: ACETAMINOPHEN 325 MG TABLET ONE (21:22)
[2020-03-28] MEDS ORDERED: MISOPROSTOL 0.2 MG TABLET ONE (21:22)
[2020-03-28] MEDS ORDERED: OXYTOCIN 10 UNIT/ML VIAL ONE (21:22)
[2020-03-28] MEDS ORDERED: OXYTOCIN/0.9 % SODIUM CHLORIDE 30 UNIT/500 ML RTUINJ ONE (21:22)
[2020-03-28] MEDS ORDERED: DINOPROSTONE 10 MG VAGINAL INSERT.SR ONE (21:25)
[2020-03-28 21:35] LABS: APPEARANCE,URINE SLIGHTLY-CLOUDY; BILIRUBIN,URINE NEGATIVE (NEGATIVE); COLOR,URINE YELLOW; GLUCOSE, URINE NEGATIVE (NEGATIVE); KETONES,URINE NEGATIVE (NEGATIVE); LEUKOCYTE ESTERASE,URINE TRACE (NEGATIVE); NITRITE,URINE NEGATIVE (NEGATIVE); PROTEIN,URINE 100 mg/dL (NEGATIVE); URINE SPECIFIC GRAVITY 1.024; UROBILINOGEN,URINE NEGATIVE mg/dL (<2.0)
[2020-03-28] MEDS ORDERED: MAG HYDROX/AL HYDROX/SIMETH SUSP 30 ML UDCUP ONE (21:36)
[2020-03-28 21:52] LABS: URINE AMPHETAMINES SCREEN NEGATIVE; URINE BARBITURATES SCREEN NEGATIVE; URINE BENZODIAZEPINES SCREEN NEGATIVE; URINE COCAINE SCREEN NEGATIVE; URINE MARIJUANA (THC) SCREEN NEGATIVE; URINE METHADONE SCREEN NEGATIVE; URINE PHENCYCLIDINE SCREEN NEGATIVE
[2020-03-28 21:56] LABS: UR PRO/CREAT RATIO RESULT 0.5 mg/mg (0.0-0.2); URINE CREATININE 173.5 mg/dL (16-327); URINE PROTEIN 78.1 mg/dL (<12)
[2020-03-29] MEDS ORDERED: ACETAMINOPHEN 325 MG TABLET ONE ×2 (06:16→13:29)
[2020-03-29 10:25] LABS: ABSOLUTE BASOPHILS # (AUTO) 0.1 10^3/uL (0.0-0.2); ABSOLUTE EOSINOPHILS # (AUTO) 0.1 10^3/uL (0.0-0.6); ABSOLUTE MONOCYTES (AUTO) 0.6 10^3/uL (0.1-1.4); ABSOLUTE NEUT (AUTO) 6.3 10^3/uL (1.7-8.2); BASOPHILS % (AUTO) 0.6 % (0-2); EOSINOPHILS % (AUTO) 1.5 % (0-6); HEMATOCRIT 38.7 % (36.0-47.0); HEMOGLOBIN 12.9 g/dL (12.0-15.5); LYMPHOCYTES % (AUTO) 21.6 % (13-45); MEAN CORPUSCULAR HEMOGLOBIN 26.9 pg (27.0-33.4); MEAN CORPUSCULAR HGB CONC 33.4 g/dL (32.0-36.0); MEAN CORPUSCULAR VOLUME 81 fl (80-97); MONOCYTES % (AUTO) 6.4 % (3-13); PLATELET COUNT 216 10^3/uL (150-450); RED BLOOD COUNT 4.79 10^6/uL (3.72-5.28); RED CELL DISTRIBUTION WIDTH 14.9 % (11.5-14.0); SEGMENTED NEUTROPHILS % (AUTO) 69.9 % (42-78); TOTAL CELLS COUNTED % (AUTO) 100 %
[2020-03-29 10:49] LABS: ALBUMIN 3.1 g/dL (3.5-5.0); ALKALINE PHOSPHATASE 94 U/L (38-126); ANION GAP 5 (5-19); ASPARTATE AMINO TRANSFERASE 18 U/L (14-36); BILIRUBIN,TOTAL 0.4 mg/dL (0.2-1.3); BLOOD UREA NITROGEN 8 mg/dL (7-20); CALCIUM 8.8 mg/dL (8.4-10.2); CARBON DIOXIDE 21 mmol/L (22-30); CHLORIDE 109 mmol/L (98-107); GLUCOSE 100 mg/dL (75-110); POTASSIUM 4.1 mmol/L (3.6-5.0); URIC ACID 5.6 mg/dL (2.5-7.0)
--- NOTE | 2020-03-29 11:40 | Admission Physical ---
Datetime Report Generated by CPN: 03/29/2020 11:40 CURRENT ADMISSION Hx Assessment: The History has been Reviewed and is Current Chief Complaint: Scheduled Induction of Labor Indication for Induction: Chronic Primary/Essential HTN Indication for Induction- Other: super imposed Pre -e Admit Impression : Term, Intrauterine ; No Active Labor; Induction of Labor Admit Plan: Admit to Unit; Initiate Labor Induction Protocol ALLERGIES Medication Allergies: No Medication Allergies: No Known Drug Allergies (03/25/2020) Latex: No Latex Allergies Food Allergies: none Environmental Allergies: none OBSTETRICAL HISTORY EDC: 04/16/2020 00:00 : 1 Para: 0 Term: 0 : 0 SAB: 0 IAB: 0 Ectopic: 0 Livin Cesareans: 0 VBACs: 0 Multiple Births: 0 Gestational Diabetes: No Rh Sensitization: No Incompetent Cervix: No DWAIN: No Infertility: No ART Treatment: No Uterine Anomaly: No IUGR: No Hx Previous C/S: No Macrosomia: No Hx Loss/Stillborn: No PIH: Yes Hx : No Placenta Previa/Abruption: No Depression/PP Depression: No PTL/PROM: No Post Hemorrhage: No Current Procedures: Ultrasound; NST Obstetrical History Comments: G1: current SEE RECORDS Alcohol: No Marijuana : No Cocaine: No Other Illicit Drugs: No Cigarettes: Never Smoker. 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: No Heart Disease: No Hosp/Surgery: No Autoimmune Disorder: No Anesthetic Complications: No Kidney Disease: No Abnormal Pap Smear: No Neuro/Epilepsy: No Psychiatric Disorders: No Other Medical Diseases: No Hepatitis/Liver Disease: No Significant Family History: No Varicosities/Phlebitis: No Trauma/Violence : No Thyroid Dysfunction: No INFECTIOUS HISTORY Gonorrhea: No Genital Herpes: No Chlamydia: No Tuberculosis: No Syphilis: No Hepatitis: No HIV/AIDS Exposure: No Rash or Viral Illness: No HPV: No PHYSICAL EXAM General: Normal HEENT: Normal Neurologic: Normal Thyroid: Normal Heart: Normal Lungs: Normal Breast: Deferred Back: Normal Abdomen: Normal Genitourinary Exam: Normal Extremities: Normal DTRs: Normal Pelvic Type: Adequate Physical Exam Comments: AMA IUI 07-24-19 Rubella non immune + Materna T for Trisomy 21, seen by MFM GBS neg Vital Signs: Reviewed MEMBRANES Membranes: Intact FETUS A EGA: 37.3 Monitoring: External US Variability: Moderate 6-25bpm Accelerations: 15X15 Decelerations: None Admit Comment: Admitted to LD for IOL by Dr. Leyva, for cervidil and Pitocin Seen by Dr. Soria, POC discussed, Cooks catheter planned Pt agrees with POC PLANS FOR LABOR AND DELIVERY Labor and Delivery: None Pain Management: Epidural Feeding Preference: Breast Benefit of Breast Feed Discussed: Yes Circumcision: N/A INFORMED CONSENT Assignment: Trena Soria MD Signature: with User ID: Pedro : with User ID: [email or web address]
[2020-03-29] MEDS ORDERED: OXYTOCIN/0.9 % SODIUM CHLORIDE 30 UNIT/500 ML RTUINJ IV PRN (12:38)
[2020-03-29] MEDS ORDERED: NALBUPHINE HCL INJ 10 MG/1 ML AMPULE INJ ONE (15:30)
[2020-03-29] MEDS ORDERED: NALBUPHINE HCL INJ 10 MG/1 ML AMPULE ONE (15:30)
[2020-03-29] MEDS ORDERED: ONDANSETRON HCL INJ/PF 4 MG/2 ML SDV ONE (16:34)
[2020-03-29] MEDS ORDERED: ONDANSETRON HCL INJ/PF 4 MG/2 ML SDV IV ONE (16:35)
[2020-03-29] MEDS ORDERED: EPHEDRINE SULFATE INJ 50 MG/1 ML AMPULE ONE (17:45)
[2020-03-29] MEDS ORDERED: FENTANYL/BUPIVACAINE/NS/PF 300 MCG/150 ML RTUINJ EPI ONE (17:46)
[2020-03-29] MEDS ORDERED: BUPIVACAINE HCL 0.25 % INJ/PF (2.5 MG/1 ML) 30 ML VIAL ONE (17:46)
[2020-03-30] MEDS ORDERED: ACETAMINOPHEN 325 MG TABLET ONE (01:43)
[2020-03-30] MEDS ORDERED: ACETAMINOPHEN 325 MG TABLET PO ONE (01:43)
[2020-03-30] MEDS ORDERED: DIBUCAINE 1% OINTMENT 28 GM TP PRN (04:59)
[2020-03-30] MEDS ORDERED: NA PHOS,M-B/NA PHOS,DI-BA (ADULT) 133 ML ENEMA PR PRN (04:59)
[2020-03-30] MEDS ORDERED: BENZOCAINE/MENTHOL AEROSOL SPRAY 56 ML TOP PRN (04:59)
[2020-03-30] MEDS ORDERED: MEASLES,MUMPS&RUBELLA VACC/PF 0.5 ML VIAL SUBCUT PRN (04:59)
[2020-03-30] MEDS ORDERED: DIPH/PERTUSS(ACELL)/TETANUS VAC/PF 0.5 ML SYR (>=10YO) IM PRN (04:59)
[2020-03-30] MEDS ORDERED: MAGNESIUM HYDROXIDE SUSP 30 ML UDCUP PO PRN (04:59)
[2020-03-30] MEDS ORDERED: ZOLPIDEM TARTRATE 5 MG TABLET PO PRN (04:59)
[2020-03-30] MEDS ORDERED: PROMETHAZINE HCL 25 MG SUPP.RECT PR PRN (04:59)
[2020-03-30] MEDS ORDERED: PROMETHAZINE HCL 25 MG TABLET PO PRN (04:59)
[2020-03-30] MEDS ORDERED: ACETAMINOPHEN 650 MG SUPP.RECT PR PRN (04:59)
[2020-03-30] MEDS ORDERED: ACETAMINOPHEN WITH CODEINE #3 TABLET PO PRN ×2 (04:59)
[2020-03-30] MEDS ORDERED: OXYTOCIN/0.9 % SODIUM CHLORIDE 30 UNIT/500 ML RTUINJ IV PRN (04:59)
[2020-03-30] MEDS ORDERED: DIPHENHYDRAMINE HCL 25 MG CAPSULE PO PRN (04:59)
[2020-03-30] MEDS ORDERED: PSEUDOEPHEDRINE HCL 30 MG TABLET PO PRN (04:59)
[2020-03-30] MEDS ORDERED: PROMETHAZINE HCL INJ 25 MG/1 ML VIAL IV PRN (04:59)
[2020-03-30] MEDS ORDERED: GLYCERIN/WITCH HAZEL LEAF 1 EACH MED..WIPE TP PRN (04:59)
[2020-03-30] MEDS ORDERED: IBUPROFEN 800 MG TABLET PO SCH (06:00)
--- NOTE | 2020-03-30 07:24 | Delivery Summary ---
Del Sum A-C Datetime Report Generated by CPN: 03/30/2020 07:24 DELIVERY PERSONNEL DELIVERY PERSONNEL: [id number] Delivery Doctor:: Trena Soria MD Labor and Delivery Nurse:: Ivania Almodovar RN Nursery Nurse:: Mary Jo Singh RN Nursery Nurse:: Yue Fowler RN Regional Account Executive/BULLET ASSEMBLY PRESS OPERATOR: Kasise Cartagena, ST MATERNAL INFORMATION Delivery Anesthesia: Epidural Medications After Delivery: Pitocin 30 Units in 500ml NS/D5W Delivery QBL: 50 Maternal Complications: None Provider Comments: VFI delivered through nuchal. Shoulders and body delivered without difficulty. Cord doubly clamped and cut and infant to maternal abdomen for NRP. Placenta delivered intact spontaneously. FF at U. 1st degree perineal laceration repaired with good hemostasis. baby to nursery. Mother stable upon provider leaving the room. LABOR SUMMARY EDC: 04/16/2020 00:00 No. Babies in Womb: 1 Attempted: No Labor Anesthesia: Epidural LABOR INFORMATION Reason for Induction: Pre-Eclampsia Onset of Labor: 03/29/2020 20:47 Complete Dilatation: 03/30/2020 02:56 Cervical Ripening Agents: Cervidil Oxytocin: Induction Group B Beta Strep: negative Antibiotics # of Doses: n/a Antibiotics Time of Last Dose: n/a Name of Antibiotic Given: n/a Steroids Given: > 24 Hours before Delivery Reason Steroids Not Administered: Not Applicable MEMBRANES Membranes Rupture Method: Artificial Rupture of Membranes: 03/29/2020 19:30 Length of Rupture (hr): 9.25 Amniotic Fluid Color: Clear Amniotic Fluid Amount: Moderate Amniotic Fluid Odor: Normal STAGES OF LABOR Stage 1 hr: 6 Stage 1 min: 9 Stage 2 hr: 1 Stage 2 min: 49 Stage 3 hr: 0 Stage 3 min: 4 Total Time in Labor hr: 8 Total Time in Labor min: 2 VAGINAL DELIVERY Episiotomy: None Laceration #1: Perineal Laceration Extension #1: First Degree Laceration Repair: Yes Laceration Repair Note: 1st degree perineal laceration repaired. Sponge Count Correct: Yes Sharps Count Correct: Yes CSECTION DELIVERY Primary Indication: N/A Secondary Indication: N/A CSection Incidence: N/A Labor: N/A Elective: N/A CSection Incision: N/A BABY A INFORMATION Infant Delivery Date/Time: 03/30/2020 04:45 Method of Delivery: Vaginal Nurse Controlled Delivery: No Born in Route : No : N/A Forceps: N/A Vacuum Extraction: N/A Shoulder Dystocia : No PRESENTATION/POSITION BABY A Presentation: Cephalic Cephalic Presentation: Vertex Vertex Position: Right Occipital Anterior Breech Presentation: N/A PLACENTA INFORMATION BABY A Placenta Delivery Time : 03/30/2020 04:49 Placenta Method of Delivery: Spontaneous Placenta Status: Delivered SCORES BABY A Heart Rate 1 min: >100 bpm Resp Effort 1 min: Good Cry Reflex Irritability 1 min: Cough or Sneeze or Pulls Away Muscle Tone 1 min: Some Flexion of Extremities Color 1 min: Blue/Pale Resuscitation Effort 1 min: Tactile Stimulation SCORE 1 MIN: 7 Heart Rate 5 min: >100 bpm Resp Effort 5 min: Good Cry Reflex Irritability 5 min: Cough or Sneeze or Pulls Away Muscle Tone 5 min: Some Flexion of Extremities Color 5 min: Body [place], Extremities Blue SCORE 5 MIN: 8 INFANT INFORMATION BABY A Gestational Age at Delivery: 37.6 Gestational Status: Early Term- 37- 38.6 Weeks Infant Outcome : Liveborn Infant Condition : Stable Sex: Female IDENTIFICATION BABY A Verification Date/Time: 03/30/2020 05:37 ID Band Number: [id number] Mother's Name Verified: Yes Infant RN Verifying : JYash Bradleyh, RN and M. Almodovar, RN WEIGHT/LENGTH BABY A Birthweight (gm): 2956 Weight (lb): 6 Infant Weight (oz): 8 Length (in): 18.75 Infant Length (cm): 47.63 CORD INFORMATION BABY A No. Cord Vessels: 3 Nuchal Cord : N/A Cord Blood Taken: Yes-For Storage (Mom's Blood type +) Suction: None ASSESSMENT BABY A Infant Complications: Multiple Late Decels Physical Findings at Delivery: [place] Physical Findings- Other: See full nursery assessment Skin to Skin: Yes Metal Mover/ALS Called : No Transferred To: NICU BABY B INFORMATION : N/A SIGNATURES Signature: with User ID: [email or web address]
[2020-03-30] MEDS: FAMOTIDINE 20 MG TABLET PO SCH ×2 (09:34→22:48)
[2020-03-30] MEDS: SENNOSIDES/DOCUSATE 8.6-50 MG 1 EACH TABLET PO SCH (09:35)
[2020-03-30] MEDS: FERROUS SULFATE 325 MG TABLET PO SCH ×2 (09:35→17:46)
[2020-03-30] MEDS: DOCUSATE SODIUM 100 MG CAPSULE PO SCH ×2 (09:35→17:45)
[2020-03-30] MEDS: PRENATAL VITAMIN W DHA CAPSULE PO SCH (09:35)
--- NOTE | 2020-03-30 10:11 | PDOC PROGRESS REPORT ---
Subjective-OB Progress Note for:: 03/30/20 Subjective: Doing well, just delivered this AM, no c/o Physical Exam (OB) Vital Signs: Temp Pulse Resp BP Pulse Ox 98.2 F 73 18 143/83 H 99 03/30/20 07:46 03/30/20 07:46 03/30/20 07:46 03/30/20 07:46 03/30/20 07:46 Intake & Output 03/29/20 03/30/20 03/31/20 06:59 06:59 06:59 Weight 95.7 kg Objective-Diagnostic Laboratory: 03/29/20 10:10 03/29/20 10:10 03/29/20 03/29/20 10:10 10:10 WBC 9.0 RBC 4.79 Hgb 12.9 Hct 38.7 MCV 81 MCH 26.9 L MCHC 33.4 RDW 14.9 H Plt Count 216 Seg Neutrophils % 69.9 Sodium 134.6 L Potassium 4.1 Chloride 109 H Carbon Dioxide 21 L Anion Gap 5 BUN 8 Creatinine 0.63 Est GFR ( Amer) > 60 Glucose 100 Uric Acid 5.6 Calcium 8.8 Total Bilirubin 0.4 AST 18 Alkaline Phosphatase 94 Total Protein 6.0 L Albumin 3.1 L Assessment and Plan(PN) - Assessment and Plan (1) Advanced maternal age during Is this a current diagnosis for this admission?: Yes (2) Chronic hypertension with superimposed pre-eclampsia Is this a current diagnosis for this admission?: Yes (3) Obstetrical laceration, first degree Is this a current diagnosis for this admission?: Yes (4) Vaginal delivery Is this a current diagnosis for this admission?: Yes - Time Spent with Patient Time with patient: Less than 15 minutes Medications reviewed and adjusted accordingly: Yes - Disposition Anticipated Discharge: Home Within: within 24 hours
[2020-03-30] MEDS ORDERED: IBUPROFEN 800 MG TABLET PO ONE (11:15)
[2020-03-30] MEDS: IBUPROFEN 800 MG TABLET PO SCH (17:45)
[2020-03-31] MEDS: IBUPROFEN 800 MG TABLET PO SCH ×3 (01:27→18:49)
[2020-03-31 07:02] LABS: HEMATOCRIT 36.9 % (36.0-47.0); HEMOGLOBIN 12.3 g/dL (12.0-15.5); MEAN CORPUSCULAR HEMOGLOBIN 26.9 pg (27.0-33.4); MEAN CORPUSCULAR HGB CONC 33.3 g/dL (32.0-36.0); MEAN CORPUSCULAR VOLUME 81 fl (80-97); PLATELET COUNT 211 10^3/uL (150-450); RED BLOOD COUNT 4.57 10^6/uL (3.72-5.28); RED CELL DISTRIBUTION WIDTH 15.7 % (11.5-14.0); WHITE BLOOD COUNT 14.9 10^3/uL (4.0-10.5)
--- NOTE | 2020-03-31 09:34 | PDOC PROGRESS REPORT ---
Subjective-OB Progress Note for:: 03/31/20 Subjective: OOB to nursery, nurse states pt is doing ok with no c/o Physical Exam (OB) Vital Signs: Temp Pulse Resp BP Pulse Ox 97.5 F 76 16 168/105 H 100 03/31/20 07:55 03/31/20 07:55 03/31/20 07:55 03/31/20 07:55 03/31/20 07:55 Intake & Output 03/30/20 03/31/20 04/01/20 06:59 06:59 06:59 Intake Total 640 Balance 640 - PIH/Pre-Eclampsia DTR's: 1 + Clonus: Negative Headache: Present Epigastric Pain: No Visual Changes: No - Lochia Lochia Amount: Scant < 10 ml Lochia Color: Rubra/Red - Abdomen Description: Tender, Soft Hernia Present: No Fundal Description: Firm, Midline Fundal Height: u/u - u/2 Objective-Diagnostic Laboratory: 03/31/20 06:17 03/29/20 10:10 03/31/20 06:17 WBC 14.9 H RBC 4.57 Hgb 12.3 Hct 36.9 MCV 81 MCH 26.9 L MCHC 33.3 RDW 15.7 H Plt Count 211 Assessment and Plan(PN) - Assessment and Plan (1) Advanced maternal age during Is this a current diagnosis for this admission?: Yes (2) Chronic hypertension with superimposed pre-eclampsia Is this a current diagnosis for this admission?: Yes (3) Obstetrical laceration, first degree Is this a current diagnosis for this admission?: Yes (4) Vaginal delivery Is this a current diagnosis for this admission?: Yes - Time Spent with Patient Time with patient: Less than 15 minutes Medications reviewed and adjusted accordingly: Yes - Disposition Anticipated Discharge: Home Within: within 24 hours - recheck BP when she is back from nursery
[2020-03-31] MEDS: DOCUSATE SODIUM 100 MG CAPSULE PO SCH ×2 (09:59→18:49)
[2020-03-31] MEDS: FERROUS SULFATE 325 MG TABLET PO SCH ×2 (09:59→18:49)
[2020-03-31] MEDS: FAMOTIDINE 20 MG TABLET PO SCH ×2 (09:59→21:40)
[2020-03-31] MEDS: PRENATAL VITAMIN W DHA CAPSULE PO SCH (09:59)
[2020-03-31] MEDS: NIFEDIPINE 30 MG TAB.ER.24 PO SCH (10:01)
[2020-03-31] MEDS: SENNOSIDES/DOCUSATE 8.6-50 MG 1 EACH TABLET PO SCH (10:01)
[2020-04-01] MEDS: IBUPROFEN 800 MG TABLET PO SCH ×3 (02:30→18:41)
[2020-04-01] MEDS: NIFEDIPINE 30 MG TAB.ER.24 PO SCH (09:54)
[2020-04-01] MEDS: FERROUS SULFATE 325 MG TABLET PO SCH ×2 (09:54→18:41)
[2020-04-01] MEDS: SENNOSIDES/DOCUSATE 8.6-50 MG 1 EACH TABLET PO SCH (09:54)
[2020-04-01] MEDS: FAMOTIDINE 20 MG TABLET PO SCH ×2 (09:55→22:24)
[2020-04-01] MEDS: PRENATAL VITAMIN W DHA CAPSULE PO SCH (09:55)
[2020-04-01] MEDS: DOCUSATE SODIUM 100 MG CAPSULE PO SCH ×2 (09:55→18:41)
--- NOTE | 2020-04-01 10:24 | PDOC PROGRESS REPORT ---
Subjective-OB Progress Note for:: 04/01/20 Physical Exam (OB) Vital Signs: Temp Pulse Resp BP Pulse Ox 97.7 F 76 18 154/97 H 100 04/01/20 07:37 04/01/20 07:37 04/01/20 07:37 04/01/20 07:37 04/01/20 07:37 Intake & Output 03/31/20 04/01/20 04/02/20 06:59 06:59 06:59 Intake Total 640 830 Balance 640 830 - PIH/Pre-Eclampsia DTR's: 1 + Clonus: Negative Headache: Present Epigastric Pain: No Visual Changes: No - Lochia Lochia Amount: Small 10-25 ml Lochia Color: Rubra/Red - Abdomen Description: Soft, Round Hernia Present: No Bowel Sounds: Normoactive Flatus Presence: Present Stool: Yes Fundal Description: Firm, Midline Fundal Height: u/u - u/2 - Extremities Lower extremities: Edema Objective-Diagnostic Laboratory: 03/31/20 06:17 03/29/20 10:10 Assessment and Plan(PN) - Time Spent with Patient Medications reviewed and adjusted accordingly: Yes - Disposition Anticipated Discharge: Home
[2020-04-02] MEDS: IBUPROFEN 800 MG TABLET PO SCH ×2 (02:37→09:50)
[2020-04-02] MEDS: SENNOSIDES/DOCUSATE 8.6-50 MG 1 EACH TABLET PO SCH (09:50)
[2020-04-02] MEDS: DOCUSATE SODIUM 100 MG CAPSULE PO SCH (09:50)
[2020-04-02] MEDS: FERROUS SULFATE 325 MG TABLET PO SCH (09:50)
[2020-04-02] MEDS: NIFEDIPINE 30 MG TAB.ER.24 PO SCH (09:50)
[2020-04-02] MEDS: PRENATAL VITAMIN W DHA CAPSULE PO SCH (09:50)
[2020-04-02] MEDS: FAMOTIDINE 20 MG TABLET PO SCH (09:50)
--- NOTE | 2020-04-02 11:50 | PDOC DISCHARGE SUMMARY ---
Impression - Admit/DC Date/PCP Admission Date/Primary Care Provider: 03/28/20 19:31 ROMAINE MILLER MD Discharge Date: 04/02/20 - Discharge Diagnosis (1) Advanced maternal age during Is this a current diagnosis for this admission?: Yes (2) Chronic hypertension with superimposed pre-eclampsia Is this a current diagnosis for this admission?: Yes (3) Obstetrical laceration, first degree Is this a current diagnosis for this admission?: Yes (4) Vaginal delivery Is this a current diagnosis for this admission?: Yes - Additional Information Resuscitation Status: Full Code Discharge Diet: Regular Discharge Activity: Activity As Tolerated, Balance Activity w/Rest, Pelvic Rest Referrals: ROMAINE MILLER MD [Primary Care Provider] - Prescriptions: Ibuprofen [Motrin 800 mg Tablet] 800 mg PO Q8HP PRN #60 tablet PRN Reason: Nifedipine [Procardia XL 30 mg Tablet] 30 mg PO DAILY #30 tab.er.24 Home Medications: Pnv W-O Ca No5/Fe Fumarate/FA [-U Multiple Vitamin Capsule] 1 cap PO DAILY 04/25/13 Ibuprofen [Motrin 800 mg Tablet] 800 mg PO Q8HP PRN #60 tablet 04/02/20 Nifedipine [Procardia XL 30 mg Tablet] 30 mg PO DAILY #30 tab.er.24 04/02/20 HPI Gestational Age: 37.3 Reason(s) for Admission: Induction of Labor Admission Note: CHTN with superimposed Pre Eclampsia Procedures: NST Intrapartum Procedure(s): Spontaneous Vaginal Delivery Complication(s): Laceration-Perineal Laceration-Degree: 1st Results Laboratory Results: WBC 14.9 10^3/uL (4.0-10.5) H 03/31/20 06:17 RBC 4.57 10^6/uL (3.72-5.28) 03/31/20 06:17 Hgb 12.3 g/dL (12.0-15.5) 03/31/20 06:17 Hct 36.9 % (36.0-47.0) 03/31/20 06:17 MCV 81 fl (80-97) 03/31/20 06:17 MCH 26.9 pg (27.0-33.4) L 03/31/20 06:17 MCHC 33.3 g/dL (32.0-36.0) 03/31/20 06:17 RDW 15.7 % (11.5-14.0) H 03/31/20 06:17 Plt Count 211 10^3/uL (150-450) 03/31/20 06:17 Lymph % (Auto) 21.6 % (13-45) 03/29/20 10:10 [place] % (Auto) 6.4 % (3-13) 03/29/20 10:10 Eos % (Auto) 1.5 % (0-6) 03/29/20 10:10 Baso % (Auto) 0.6 % (0-2) 03/29/20 10:10 Absolute Neuts (auto) 6.3 10^3/uL (1.7-8.2) 03/29/20 10:10 Absolute Lymphs (auto) 2.0 10^3/uL (0.5-4.7) 03/29/20 10:10 Absolute Monos (auto) 0.6 10^3/uL (0.1-1.4) 03/29/20 10:10 Absolute Eos (auto) 0.1 10^3/uL (0.0-0.6) 03/29/20 10:10 Absolute Basos (auto) 0.1 10^3/uL (0.0-0.2) 03/29/20 10:10 Seg Neutrophils % 69.9 % (42-78) 03/29/20 10:10 Sodium 134.6 mmol/L (137-145) L 03/29/20 10:10 Potassium 4.1 mmol/L (3.6-5.0) 03/29/20 10:10 Chloride 109 mmol/L (98-107) H 03/29/20 10:10 Carbon Dioxide 21 mmol/L (22-30) L 03/29/20 10:10 Anion Gap 5 (5-19) 03/29/20 10:10 BUN 8 mg/dL (7-20) 03/29/20 10:10 Creatinine 0.63 mg/dL (0.52-1.25) 03/29/20 10:10 Est GFR ( Amer) > 60 (>60) 03/29/20 10:10 Est GFR (MDRD) Non-Af > 60 (>60) 03/29/20 10:10 Glucose 100 mg/dL (75-110) 03/29/20 10:10 Uric Acid 5.6 mg/dL (2.5-7.0) 03/29/20 10:10 Calcium 8.8 mg/dL (8.4-10.2) 03/29/20 10:10 Total Bilirubin 0.4 mg/dL (0.2-1.3) 03/29/20 10:10 Direct Bilirubin 0.0 mg/dL (0.0-0.4) 03/29/20 10:10 Neonat Total Bilirubin Not Reportable 03/29/20 10:10 Neonat Direct Bilirubin Not Reportable 03/29/20 10:10 Neonat Indirect Bili Not Reportable 03/29/20 10:10 AST 18 U/L (14-36) 03/29/20 10:10 ALT 10 U/L (<35) 03/29/20 10:10 Alkaline Phosphatase 94 U/L (38-126) 03/29/20 10:10 Lactate Dehydrogenase 199 U/L (120-246) 03/29/20 10:10 Total Protein 6.0 g/dL (6.3-8.2) L 03/29/20 10:10 Albumin 3.1 g/dL (3.5-5.0) L 03/29/20 10:10 Urine Color YELLOW 03/28/20 20:40 Urine Appearance SLIGHTLY-CLOUDY 03/28/20 20:40 Urine pH 6.0 (5.0-9.0) 03/28/20 20:40 Ur Specific [place] 1.024 03/28/20 20:40 Urine Protein 100 mg/dL (NEGATIVE) H 03/28/20 20:40 Urine Glucose (UA) NEGATIVE mg/dL (NEGATIVE) 03/28/20 20:40 Urine Ketones NEGATIVE mg/dL (NEGATIVE) 03/28/20 20:40 Urine Blood NEGATIVE (NEGATIVE) 03/28/20 20:40 Urine Nitrite NEGATIVE (NEGATIVE) 03/28/20 20:40 Urine Bilirubin NEGATIVE (NEGATIVE) 03/28/20 20:40 Urine Urobilinogen NEGATIVE mg/dL (<2.0) 03/28/20 20:40 Ur Leukocyte Esterase TRACE (NEGATIVE) H 03/28/20 20:40 Ur 24 Hour Volume Cancelled 03/14/20 14:30 Urine Creatinine 173.5 mg/dL (16-327) 03/28/20 20:40 Ur Total Protein 24 Hr Cancelled 03/14/20 14:30 Protein/Creatinin Ratio 0.5 mg/mg (0.0-0.2) H 03/28/20 20:40 Urine Total Protein 78.1 mg/dL (<12) H 03/28/20 20:40 Ur Protein 24 Hr Calc Cancelled 03/14/20 14:30 Urine Ascorbic Acid NEGATIVE (NEGATIVE) 03/28/20 20:40 Urine Opiates Screen NEGATIVE 03/28/20 20:40 Urine Methadone Screen NEGATIVE 03/28/20 20:40 Ur Barbiturates Screen NEGATIVE 03/28/20 20:40 Ur Phencyclidine Scrn NEGATIVE 03/28/20 20:40 Ur Amphetamines Screen NEGATIVE 03/28/20 20:40 U Benzodiazepines Scrn NEGATIVE 03/28/20 20:40 Urine Cocaine Screen NEGATIVE 03/28/20 20:40 U Marijuana (THC) Screen NEGATIVE 03/28/20 20:40 RPR NONREACTIVE (NONREACTIVE) 03/28/20 20:06 Blood Type A POSITIVE 03/28/20 20:06 Antibody Screen NEGATIVE 03/28/20 20:06 Impressions: Obstetrics Ultrasound 03/28/20 00:00 IMPRESSION: Live IUP in vertex presentation. copyright 2010 [employer]- All Rights Reserved Plan Plan of Treatment: f/u at [facility] For BP check Time Spent: Less than 30 Minutes
[2020-04-02 13:30] VITALS: BP 136/88
== END 2020-04-02 15:17 | disposition home or self-care (01) | DRG 807 ==
LOC: LR 19:31 → 2S 03-30 07:35
PROVIDERS: ADMIT Obstetrics & Gynecology Gynecology; ATTEND Obstetrics & Gynecology Gynecology
PROC: 10907ZC Drainage of Amniotic Fluid, Therapeutic from Products of Conception, Via Natural or Artificial Opening (ICD-10-PCS; 2020-03-29)
PROC: 3E033VJ Introduction of Other Hormone into Peripheral Vein, Percutaneous Approach (ICD-10-PCS; 2020-03-29)
PROC: 10E0XZZ Delivery of Products of Conception, External Approach (ICD-10-PCS; principal; 2020-03-30)
PROC: 0HQ9XZZ Repair Perineum Skin, External Approach (ICD-10-PCS; 2020-03-30)
DX: O11.4 Pre-existing hypertension with pre-eclampsia, complicating childbirth (principal); Z37.0 Single live birth; O10.92 Unspecified pre-existing hypertension complicating childbirth; O70.0 First degree perineal laceration during delivery; Z3A.37 37 weeks gestation of pregnancy
CPT/HCPCS: 1967; 36415; 76815; 80053; 80307; 81005; 82570; 83615; 84156; 84550; 85025; 85027; 86592; 86850; 86900; 86901; 94760; C1726; C1758; J2300; J2405; J2590; J3010; J3490

== ENCOUNTER → 2020-08-13 | Outpatient (CLI) | payer OTHER ==
--- NOTE | 2020-08-13 19:41 | RADIOLOGY REPORT (SQ) ---
EXAM DESCRIPTION: U/S NON-OB PELVIS W/O DOP IMAGES COMPLETED DATE/TIME: 08/13/2020 6:49 pm REASON FOR STUDY: (R10.32)PELVIC AND PERINEAL PAIN R10.2 PELVIC AND PERINEAL PAIN COMPARISON: None. TECHNIQUE: Dynamic and static grayscale images acquired of the pelvis via transabdominal approach an d recorded on PACS. Additional selected color Doppler and spectral images recorded. LIMITATIONS: None. FINDINGS: UTERUS: Contour normal. No mass. ENDOMETRIAL STRIPE: No focal or generalized thickening. No masses. CERVIX: 2.4 cm. No nabothian cysts. RIGHT OVARY AND DOPPLER: Normal size. No worrisome masses. Normal arterial vascular flow without evid ence for torsion. LEFT OVARY AND DOPPLER: Normal size. No worrisome masses. Normal arterial vascular flow without evide nce for torsion. FREE FLUID: None noted. OTHER: Scanning in the left groin in the area of the pain shows several small lymph nodes. The large st measures 13 x 5 x 5 mm. MEASUREMENTS: UTERUS: 8.4 x 7 x 4.3 cm. ENDOMETRIAL STRIPE: 6 mm. RIGHT OVARY: 3.2 x 1.4 x 2.2 cm. LEFT OVARY: 3.3 x 3 x 2 cm. IMPRESSION: Essentially normal study. There are some small lymph nodes in the left groin. These ar e nonspecific. TECHNICAL DOCUMENTATION: JOB ID: [id number] 2010 [employer]- All Rights Reserved Rev-01/28 Reading location - IP/workstation name: [email or web address]
== END ==
LOC: RAD 17:56
PROVIDERS: ATTEND Nurse Practitioner Family
DX: R10.13 Epigastric pain (principal)
CPT/HCPCS: 76856